=== PATIENT | male | born 1990 | race Caucasian/White ===

== ENCOUNTER 2018-03-17 10:38 | Emergency (ER) | payer OTHER ==
[~2018-03-17] VITALS: Ht 165.1 cm; Wt 68.0 kg
[~2018-03-17 10:38] MED LIST: AMOCLA875 PO; Augmentin 875-1 EACH PO; CODACE30 PO; FLUSAL1005; IBUP400 PO; NAPR500 PO; TETR250; TRAM50 PO
[2018-03-17] MEDS ORDERED: Bactrim Ds Tab1 EACH PO (11:10)
[2018-03-17] MEDS ORDERED: CEPH500 PO (11:10)
[2018-03-19] MEDS ORDERED: TRAM50 PO (11:33)
== END 2018-03-17 11:39 | disposition home or self-care (01) ==
LOC: ER 10:38
DX: L03.012 Cellulitis of left finger (principal); L03.317 Cellulitis of buttock
CPT/HCPCS: 99283

== ENCOUNTER 2021-11-15 04:27 | Observation (INO) | payer MEDICAID ==
[~2021-11-15] VITALS: Ht 167.6 cm; Wt 66.5 kg
[~2021-11-15 04:27] MED LIST changes: +Bactrim Ds Tab1 EACH PO; +CEPH500 PO
[2021-11-15 05:23] LABS: Source, Urine Voided
[2021-11-15 05:33] LABS: BASOPHILS ABSOLUTE AUTO 0.06 K/mm3 (0.00-0.23); BASOPHILS PERCENT AUTO 1 % (0-2); EOSINOPHILS ABSOLUTE AUTO 0.11 K/mm3 (0.00-0.68); EOSINOPHILS PERCENT AUTO 1 % (0-6); Hematocrit 47.6 % (37.0-53.0); Hemoglobin 15.9 g/dL (13.5-17.5); IMMATURE GRAN ABSOLUTE AUTO 0.04 K/mm3 (0.00-0.10); IMMATURE GRAN PERCENT AUTO 1 % (0-1); LYMPHOCYTES ABSOLUTE AUTO 3.97 K/mm3 (0.84-5.20); LYMPHOCYTES PERCENT AUTO 47 % (21-46); MONOCYTES ABSOLUTE AUTO 0.76 K/mm3 (0.16-1.47); MONOCYTES PERCENT AUTO 9 % (4-13); Mean Corpuscular HGB 31.4 pg (26.0-34.0); Mean Corpuscular HGB Conc 33.4 g/dL (31.5-36.5); Mean Corpuscular Volume 94 fL (80-100); Mean Platelet Volume 9.6 fL (9.1-12.4); NEUTROPHILS ABSOLUTE AUTO 3.59 K/mm3 (1.96-9.15); NEUTROPHILS PERCENT AUTO 42 % (41-73); Platelet Count 361 K/mm3 (150-400); RDW Coefficient Variation 11.6 % (11.7-14.2); RDW Standard Deviation 40.3 fL (35.1-46.3); Red Blood Cell Count 5.07 M/mm3 (4.30-5.90); White Blood Cell Count 8.53 K/mm3 (4.00-11.30)
[2021-11-15 05:33] LABS: Appearance, Urine Clear (Clear); Bilirubin, Urine Neg (Neg); Blood, Urine 1+ (Neg); Color, Urine Yellow (P-Yellow); Glucose Qualitative, Urine Neg (Neg); Ketones, Urine 1+ (Neg); Leukocyte Esterase, Urine Neg (Neg); Nitrite, Urine Neg (Neg); Protein, Urine 1+ (Neg); Urobilinogen, Urine NORM (Normal)
[2021-11-15 05:44] LABS: Alanine Aminotransfer (ALT/SGP 50 U/L (12-78); Albumin/Globulin Ratio 1.1 (0.8-1.8); Alk Phos 92 U/L (50-136); Anion Gap 14 mmol/L (6-16); Aspartate Aminotrans (AST/SGOT 38 U/L (12-37); Bilirubin, Total 0.3 mg/dL (0.1-1.0); Blood Urea Nitrogen 21 mg/dL (8-24); Bun/Creatinine Ratio 33.2 (12.0-20.0); CO2, Blood 19 mmol/L (21-32); Calcium, Blood 8.6 mg/dL (8.5-10.1); Chloride, Blood 107 mmol/L (98-108); Creatinine, Blood 0.63 mg/dL (0.60-1.20); Globulin, Blood 3.5 g/dL (2.2-4.0); Glomerular Filtration Rate >60 (60-); Glucose, Blood 152 mg/dL (70-99); Potassium, Blood 4.1 mmol/L (3.5-5.5); Sodium, Blood 140 mmol/L (136-145); Total Protein, Blood 7.5 g/dL (6.4-8.2)
[2021-11-15 05:44] LABS: Amorphous Light (0-Heavy); Bacteria Rare /hpf; Red Blood Cells, Urine 0-2 /hpf (0-2); Squamous Epithelial Cells Not Seen /hpf (Few); U Amphetamine Screen Not Detected; U Barbituate Screen Not Detected; U Benzodiazapine Screen Not Detected; U Buprenorphine Screen Not Detected; U Cannabinoids Screen DETECTED; U Cocaine Screen Not Detected; U Methadone Screen Not Detected; U Methamphetamine Screen Not Detected; U Opiates Screen Not Detected; U Oxycodone Screen Not Detected; U Phencyclidine Screen Not Detected; U Propoxyphene Screen Not Detected; White Blood Cells, Urine Not Seen /hpf (0-5)
--- NOTE | 2021-11-15 13:04 | NUR ---
ADMIT PATIENT ADMITTED FROM ER AT 1215. PATIENT SETTLED INTO ROOM. ADMIT COMPLETE. PATIENT MRI COMPLETE. FAMILY AT BEDSIDE. PATIENT IS A SBA FOR TRANSFERS. SEIZURE PADS IN PLACE. PATIENT REPORTS HEADACHE 01/19, MEDICATED PER EMAR. ONE BAG OF FLUID STARTED, 100MLS/HR. PATIENT REPORTS BEING VERY TIRED, WANTING TO SLEEP. TURNED DOWN LIGHTS AND CLOSED BLINDS. PATIENT ON CLEAR LIQUID DIET. PATIENT IS PLEASANT AND COOPERATIVE WITH CARE.
--- NOTE | 2021-11-15 14:59 | NUR ---
SHIFT REPORT REVIECED FROM CAR RN AT 6815. PT WAS RESTING IN ROOM, STATED HE IS VERY TIRED AND FEELS SLEEPY, WOULD LIKE TO CONTINUE SLEEPING. WILL CONTINUE TO MONITOR.
--- NOTE | 2021-11-15 18:34 | NUR ---
SHIFT SUMMARY PT HAS BEEN RESTING IN THIS ROOM ALL DAY. HE IS TIRED FROM ALL HIS MEDICATIONS THIS MORNING. HE HAS COMPLAINED OF A HEADACHE AND WAS MEDICATED PER MAR BUT OTHERWISE HAS FELT NO AFTER EFFECTS OF HIS SEIZURE. CALLED AND THEY REALYED MRI RESULTS TO THE FAMILY WHO CALLED TO ASK ABOUT HIM. WILL CONTINUE TO MONITOR.
--- NOTE | 2021-11-15 23:38 | NUR ---
PT WAS ABLE TO EAT A SANDWICH, CRACKERS, JELLO, AND CHEESE STICK WITHOUT NAUSEA. DIET ADVANCED TO REGULAR FOR BREAKFAST.
--- NOTE | 2021-11-16 04:25 | NUR ---
BUSPERSON SUMMARY PT WITH POSSIBLE DC TODAY. ADMITTED FOR SEIZURES, HAS NOT HAD ONE SINCE ADMIT. PT SLIGHTLY LETHARGIC AT START OF SHIFT R/T MEDICATIONS RECEIVED IN ER. HE IS MORE ALERT AND ORIENTED X4. SBA BUT MOSTLY INDEPENDENT. PT ABLE TO EAT FOOD WITHOUT NAUSEA OR VOMITING. DIET ADVANCED TO REGULAR. NO COMPLAINTS OF PAIN.
[2021-11-16 05:21] LABS: BASOPHILS ABSOLUTE AUTO 0.04 K/mm3 (0.00-0.23); BASOPHILS PERCENT AUTO 1 % (0-2); EOSINOPHILS ABSOLUTE AUTO 0.07 K/mm3 (0.00-0.68); EOSINOPHILS PERCENT AUTO 1 % (0-6); Hematocrit 43.9 % (37.0-53.0); IMMATURE GRAN ABSOLUTE AUTO 0.02 K/mm3 (0.00-0.10); IMMATURE GRAN PERCENT AUTO 0 % (0-1); LYMPHOCYTES ABSOLUTE AUTO 1.79 K/mm3 (0.84-5.20); LYMPHOCYTES PERCENT AUTO 24 % (21-46); MONOCYTES ABSOLUTE AUTO 0.65 K/mm3 (0.16-1.47); MONOCYTES PERCENT AUTO 9 % (4-13); Mean Corpuscular HGB 31.4 pg (26.0-34.0); Mean Corpuscular HGB Conc 34.2 g/dL (31.5-36.5); Mean Corpuscular Volume 92 fL (80-100); Mean Platelet Volume 9.5 fL (9.1-12.4); NEUTROPHILS ABSOLUTE AUTO 4.86 K/mm3 (1.96-9.15); NEUTROPHILS PERCENT AUTO 66 % (41-73); Platelet Count 279 K/mm3 (150-400); RDW Coefficient Variation 11.7 % (11.7-14.2); RDW Standard Deviation 39.7 fL (35.1-46.3); Red Blood Cell Count 4.78 M/mm3 (4.30-5.90); White Blood Cell Count 7.43 K/mm3 (4.00-11.30)
[2021-11-16 05:53] LABS: Anion Gap 5 mmol/L (6-16); Blood Urea Nitrogen 14 mg/dL (8-24); Bun/Creatinine Ratio 22.5 (12.0-20.0); CO2, Blood 26 mmol/L (21-32); Calcium, Blood 8.6 mg/dL (8.5-10.1); Chloride, Blood 111 mmol/L (98-108); Creatinine, Blood 0.62 mg/dL (0.60-1.20); Glomerular Filtration Rate >60 (60-); Glucose, Blood 105 mg/dL (70-99); Potassium, Blood 3.9 mmol/L (3.5-5.5); Sodium, Blood 142 mmol/L (136-145)
[2021-11-16] MEDS ORDERED: LEVE500 PO (11:53)
[2021-11-16] MEDS ORDERED: Keppra750 MG PO (11:54)
--- NOTE | 2021-11-16 12:02 | NUR ---
SUMMARY/DISCHARGE PT DISCHARGED TO HOME, PT VERBALIZED UNDERSTANDING OF DISCHARGE INSTRUCTIONS REGARDING MEDS AND FOLLOW UP, PT DECLINED A WHEELCHAIR, AMBULATED SAFELY TO ELEVATOR WITH HIS SPOUSE
== END 2021-11-16 12:01 | disposition home or self-care (01) ==
LOC: ER 04:27 → MEDS 04:28 → ER 12:06 → MEDS 12:27
PROVIDERS: Emergency Medicine; ADMIT Internal Medicine
DX: G40.909 Epilepsy, unspecified, not intractable, without status epilepticus (principal); R51.9 Headache, unspecified
CPT/HCPCS: 36415; 70450; 70553; 80048; 80053; 81001; 84146; 85025; 93005; 93010; 96365; 96375; 99285-25; A9270; A9579; J1650; J1885; J1953; J2060; J2405; J7030

== ENCOUNTER 2022-07-03 05:14 | Emergency (ER) | payer OTHER ==
[~2022-07-03] VITALS: Ht 167.6 cm; Wt 65.8 kg
[~2022-07-03 05:14] MED LIST changes: +Keppra750 MG PO; +LEVE500 PO
[2022-07-03 05:54] LABS: BASOPHILS ABSOLUTE AUTO 0.05 K/mm3 (0.00-0.23); BASOPHILS PERCENT AUTO 1 % (0-2); EOSINOPHILS ABSOLUTE AUTO 0.22 K/mm3 (0.00-0.68); EOSINOPHILS PERCENT AUTO 2 % (0-6); Hematocrit 46.3 % (37.0-53.0); Hemoglobin 15.9 g/dL (13.5-17.5); IMMATURE GRAN ABSOLUTE AUTO 0.02 K/mm3 (0.00-0.10); IMMATURE GRAN PERCENT AUTO 0 % (0-1); LYMPHOCYTES PERCENT AUTO 34 % (21-46); MONOCYTES ABSOLUTE AUTO 0.69 K/mm3 (0.16-1.47); MONOCYTES PERCENT AUTO 8 % (4-13); Mean Corpuscular HGB 31.2 pg (26.0-34.0); Mean Corpuscular HGB Conc 34.3 g/dL (31.5-36.5); Mean Corpuscular Volume 91 fL (80-100); Mean Platelet Volume 9.3 fL (9.1-12.4); NEUTROPHILS ABSOLUTE AUTO 5.16 K/mm3 (1.96-9.15); NEUTROPHILS PERCENT AUTO 56 % (41-73); Platelet Count 299 K/mm3 (150-400); RDW Coefficient Variation 11.5 % (11.7-14.2); RDW Standard Deviation 38.3 fL (35.1-46.3); White Blood Cell Count 9.24 K/mm3 (4.00-11.30)
[2022-07-03 06:23] LABS: Alanine Aminotransfer (ALT/SGP 48 U/L (12-78); Albumin, Blood 3.8 g/dL (3.4-5.0); Albumin/Globulin Ratio 1.2 (0.8-1.8); Alk Phos 93 U/L (50-136); Anion Gap 9 mmol/L (6-16); Aspartate Aminotrans (AST/SGOT 31 U/L (12-37); Bilirubin, Total 0.2 mg/dL (0.1-1.0); Blood Urea Nitrogen 21 mg/dL (8-24); Bun/Creatinine Ratio 30.4 (12.0-20.0); CO2, Blood 23 mmol/L (21-32); Calcium, Blood 8.6 mg/dL (8.5-10.1); Chloride, Blood 107 mmol/L (98-108); Creatinine, Blood 0.69 mg/dL (0.60-1.20); Globulin, Blood 3.3 g/dL (2.2-4.0); Glomerular Filtration Rate 126 (60-); Glucose, Blood 132 mg/dL (70-99); Sodium, Blood 139 mmol/L (136-145); Total Protein, Blood 7.1 g/dL (6.4-8.2); Valproic Acid <3.0 ug/mL (50.0-100.0)
== END 2022-07-03 08:28 | disposition home or self-care (01) ==
LOC: ER 05:14
PROVIDERS: Emergency Medicine
DX: G40.909 Epilepsy, unspecified, not intractable, without status epilepticus (principal); Z79.899 Other long term (current) drug therapy
CPT/HCPCS: 36415; 80053; 80164; 85025; 93005; 93010; J1885; J1953; J2405; J7030

== ENCOUNTER 2024-11-14 09:19 | Emergency (ER) | payer OTHER ==
[~2024-11-14] VITALS: Ht 165.1 cm; Wt 72.6 kg
[2024-11-14 10:20] LABS: BASOPHILS ABSOLUTE AUTO 0.07 K/mm3 (0.00-0.23); BASOPHILS PERCENT AUTO 1 % (0-2); EOSINOPHILS ABSOLUTE AUTO 0.12 K/mm3 (0.00-0.68); EOSINOPHILS PERCENT AUTO 2 % (0-6); Hematocrit 45.2 % (37.0-53.0); Hemoglobin 15.9 g/dL (13.5-17.5); IMMATURE GRAN ABSOLUTE AUTO 0.02 K/mm3 (0.00-0.10); IMMATURE GRAN PERCENT AUTO 0 % (0-1); LYMPHOCYTES ABSOLUTE AUTO 1.79 K/mm3 (0.84-5.20); LYMPHOCYTES PERCENT AUTO 31 % (21-46); MONOCYTES PERCENT AUTO 7 % (4-13); Mean Corpuscular HGB 31.6 pg (26.0-34.0); Mean Corpuscular HGB Conc 35.2 g/dL (31.5-36.5); Mean Corpuscular Volume 90 fL (80-100); Mean Platelet Volume 9.2 fL (9.1-12.4); NEUTROPHILS ABSOLUTE AUTO 3.44 K/mm3 (1.96-9.15); NEUTROPHILS PERCENT AUTO 59 % (41-73); Platelet Count 302 K/mm3 (150-400); RDW Coefficient Variation 11.4 % (11.7-14.2); RDW Standard Deviation 37.3 fL (35.1-46.3); Red Blood Cell Count 5.03 M/mm3 (4.30-5.90); White Blood Cell Count 5.84 K/mm3 (4.00-11.30)
[2024-11-14 10:44] LABS: Albumin, Blood 3.9 g/dL (3.4-5.0); Albumin/Globulin Ratio 1.1 (0.8-1.8); Bilirubin, Total 0.2 mg/dL (0.1-1.0); Bun/Creatinine Ratio 21.7 (12.0-20.0); Calcium, Blood 8.9 mg/dL (8.5-10.1); Creatinine, Blood 0.6 mg/dL (0.60-1.20); Globulin, Blood 3.4 g/dL (2.2-4.0); Potassium, Blood 4.1 mmol/L (3.5-5.5); Total Protein, Blood 7.3 g/dL (6.4-8.2)
[2024-11-14] MEDS ORDERED: LEVE500 (13:19)
[2024-11-14] MEDS ORDERED: LEVE500 PO (13:20)
[2024-11-14] MEDS ORDERED: LAMO25 (13:21)
[2024-11-14 13:40] VITALS: BP 124/93
== END 2024-11-14 14:07 | disposition home or self-care (01) ==
LOC: ER 09:19
PROVIDERS: Student in an Organized Health Care Education/Training Program
DX: K92.1 Melena (principal); Z79.899 Other long term (current) drug therapy
CPT/HCPCS: 80053; 85025; 99284